=== PATIENT | female | born 1980 | race Caucasian/White ===

== ENCOUNTER 2016-10-15 22:57 | Emergency (ER) | payer MEDICAID, OTHER ==
[~2016-10-15] VITALS: Ht 157.5 cm; Wt 74.8 kg
[2016-10-15 23:57] LABS: BLOOD UREA NITROGEN 10 mg/dL (7-18)
[2016-10-16 01:32] VITALS: BP 118/71
== END 2016-10-16 01:33 | disposition home or self-care (01) ==
LOC: ED 10-16 00:25
DX: O03.4 Incomplete spontaneous abortion without complication (principal); Z3A.10 10 weeks gestation of pregnancy
CPT/HCPCS: 36415; 76801; 80048; 82040; 84702; 85025; 99285

== ENCOUNTER 2016-10-18 15:29 | Emergency (ER) | payer MEDICAID ==
[~2016-10-18] VITALS: Ht 157.5 cm; Wt 74.6 kg
[2016-10-18 15:33] VITALS: BP 108/70
== END 2016-10-18 18:07 | disposition home or self-care (01) ==
LOC: ED 17:53
DX: O03.9 Complete or unspecified spontaneous abortion without complication (principal)
CPT/HCPCS: 36415; 76801; 84702; 85025; 99285

== ENCOUNTER 2017-02-27 10:42 | Emergency (ER) | payer MEDICAID ==
[~2017-02-27] VITALS: Ht 165.1 cm; Wt 74.5 kg
[2017-02-27] MEDS ORDERED: PREN1TAB60 PO (10:59)
[2017-02-27] MEDS ORDERED: SODIUM CHLORIDE 0.9% 1,000 ML IV ONE (11:02)
[2017-02-27 11:25] LABS: HEMATOCRIT 43.5 % (34.6-47.8); HEMOGLOBIN 14.8 g/dL (11.7-16.4); WHITE BLOOD COUNT 10.9 x10^3/uL (3.4-10)
[2017-02-27 11:38] LABS: BLOOD UREA NITROGEN 7 mg/dL (7-18)
[2017-02-27 11:56] LABS: ASPARTATE AMINO TRANSFERASE 8 U/L (15-37)
[2017-02-27 13:07] VITALS: BP 103/63
== END 2017-02-27 13:09 | disposition home or self-care (01) ==
LOC: ED 11:10
DX: O26.891 Other specified pregnancy related conditions, first trimester (principal); R10.2 Pelvic and perineal pain; Z3A.09 9 weeks gestation of pregnancy
CPT/HCPCS: 36415; 76801; 80053; 81001; 84702; 85025; 87077; 87086; 87186; 96360; 96361; 99285; J7030

== ENCOUNTER 2017-09-26 05:55 | Inpatient (IN) | payer MEDICAID ==
[~2017-09-26] VITALS: Ht 165.1 cm; Wt 89.5 kg
[~2017-09-26 05:55] MED LIST: PREN1TAB60 PO
[2017-09-26] MEDS ORDERED: OXYTOCIN 30U/ 0.9% NaCL 500ML 500 ML IV ONE (05:59)
[2017-09-26] MEDS ORDERED: OXYTOCIN 30U/ 0.9% NaCL 500ML 500 ML IV PRN (05:59)
[2017-09-26] MEDS ORDERED: AMPICILLIN 2 GM in SODIUM CHLORIDE 0.9% 100 ML IVPB STA (05:59)
[2017-09-26 06:00] VITALS: BP 125/72
[2017-09-26] MEDS ORDERED: FENTANYL PF 100 MCG/2ML IV PRN (06:00)
[2017-09-26] MEDS ORDERED: ONDANSETRON 2MG/ML, 2ML IVPush PRN (06:00)
[2017-09-26 06:23] LABS: BASOPHILS # (AUTO) 0.04 x10^3/uL (0-0.1); BASOPHILS % (AUTO) 0 % (0-1); EOSINOPHILS # (AUTO) 0.11 x10^3/uL (0-0.4); EOSINOPHILS % (AUTO) 1 % (1-7); LYMPHOCYTES % (AUTO) 15 % (22-44); MD NO; MEAN CORPUSCULAR HEMOGLOBIN 30.3 pg (27.0-34.8); MEAN CORPUSCULAR HGB CONC 33.9 g/dL (32.4-35.8); MEAN CORPUSCULAR VOLUME 89.4 fL (80-100); MEAN PLATELET VOLUME 7.9 fL (7.4-10.4); MONOCYTES # (AUTO) 0.78 x10^3/uL (0.2-0.8); MONOCYTES % (AUTO) 8 % (2-9); NEUTROPHILS # (AUTO) 7.96 x10^3/uL (1.8-6.8); NEUTROPHILS % (AUTO) 76 % (42-75); PLATELET COUNT 345 x10^3/uL (130-400); RED BLOOD COUNT 4.61 x10^6/uL (3.82-5.3); RED CELL DISTRIBUTION WIDTH 13.4 % (9.6-15.2)
[2017-09-26] MEDS ORDERED: AMPICILLIN 1 GM in SODIUM CHLORIDE 0.9% 100 ML IVPB SCH (06:30)
[2017-09-26] MEDS ORDERED: OXYTOCIN 30U/ 0.9% NaCL 500ML 500 ML ONE ×2 (06:42→15:14)
[2017-09-26] MEDS: LACTATED RINGERS 1,000 ML IV SCH ×3 (06:52→21:59)
[2017-09-26] MEDS ORDERED: NEWBORN KIT ONE ×3 (07:26→14:10)
[2017-09-26] MEDS ORDERED: FENTANYL PF 100 MCG/2ML ONE (13:26)
[2017-09-26] MEDS: FENTANYL PF 100 MCG/2ML IVPush PRN ×3 (13:29→23:33)
[2017-09-26] MEDS ORDERED: METHYLERGONOVINE 0.2 MG/ML IM ONE (14:03)
[2017-09-26] MEDS ORDERED: MISOPROSTOL 200 MCG TABLET ONE (14:03)
[2017-09-26] MEDS ORDERED: HYDROcodone/APAP 5/325 TABLET PO PRN ×2 (14:30)
[2017-09-26] MEDS ORDERED: ONDANSETRON 2MG/ML, 2ML IV PRN (14:30)
[2017-09-26] MEDS ORDERED: CARBOPROST TROMETHAMINE 250 MCG/ML, 1ML IM PRN (14:30)
[2017-09-26] MEDS ORDERED: OXYTOCIN 10 UNITS/ML, 1ML IM PRN (14:30)
[2017-09-26] MEDS ORDERED: METHYLERGONOVINE 0.2 MG/ML IM PRN (14:30)
[2017-09-26] MEDS ORDERED: ACETAMINOPHEN 325 MG TABLET PO PRN (14:30)
[2017-09-26] MEDS ORDERED: MISOPROSTOL 200 MCG TABLET PR PRN (14:30)
[2017-09-26] MEDS: OXYTOCIN 30U/ 0.9% NaCL 500ML 500 ML IV SCH (15:19)
[2017-09-26 16:10] VITALS: BP 121/74
[2017-09-26] MEDS: IBUPROFEN 600 MG TABLET PO PRN ×2 (16:35→23:02)
[2017-09-26 19:50] VITALS: BP 123/74
[2017-09-26 20:20] LABS: MD YES; MEAN CORPUSCULAR HEMOGLOBIN 30.3 pg (27.0-34.8); MEAN CORPUSCULAR HGB CONC 33.5 g/dL (32.4-35.8); MEAN CORPUSCULAR VOLUME 90.3 fL (80-100); MEAN PLATELET VOLUME 8.1 fL (7.4-10.4); PLATELET COUNT 318 x10^3/uL (130-400); RED BLOOD COUNT 4.49 x10^6/uL (3.82-5.3)
[2017-09-26 20:45] LABS: <PLATELET ESTIMATE> ADEQUATE; <PLT MORPHOLOGY> NORMAL PLT MORPH; <RBC MORPHOLOGY> NORMAL; BAND#(MANUAL) 0.16 x10^3/uL; BANDS%(MANUAL) 1 % (0-7); LYMPHS% (MANUAL) 10 % (22-44); MONOS#(MANUAL) 1.12 x10^3/uL (0.3-2.7); MONOS% (MANUAL) 7 % (2-9); REACTIVE LYMPHS # (MANUAL) 0.16 x10^3/uL (0-0); REACTIVE LYMPHS % (MANUAL) 1 % (0-0); SEG#(MANUAL) 12.96 x10^3/uL (1.8-6.8); SEGS% (MANUAL) 81 % (42-75)
[2017-09-26] MEDS: DOCUSATE 100 MG CAPSULE PO PRN (23:02)
[2017-09-27] MEDS: OXYTOCIN 30U/ 0.9% NaCL 500ML 500 ML IV SCH (00:25)
[2017-09-27 00:30] VITALS: BP 97/63
[2017-09-27 03:55] VITALS: BP 101/69
[2017-09-27] MEDS: LACTATED RINGERS 1,000 ML IV SCH (05:59)
[2017-09-27] MEDS: DOCUSATE 100 MG CAPSULE PO PRN (07:43)
[2017-09-27] MEDS: IBUPROFEN 600 MG TABLET PO PRN ×2 (07:43→15:48)
[2017-09-27 07:45] VITALS: BP 107/74
[2017-09-27] MEDS ORDERED: PRENATAL VIT/IRON/FA 1 EACH TABLET PO SCH (09:00)
[2017-09-27 12:40] VITALS: BP 100/70
[2017-09-27] MEDS ORDERED: SENN-1 PO (12:51)
[2017-09-27] MEDS ORDERED: IBUP-1222 PO (12:51)
[2017-09-27] MEDS ORDERED: HYDR-3240 PO (12:52)
== END 2017-09-27 16:02 | disposition home or self-care (01) | DRG 775 ==
LOC: LDIP 05:55 → 2NW 16:00
PROVIDERS: ADMIT Obstetrics & Gynecology; ATTEND Obstetrics & Gynecology
PROC: 10E0XZZ Delivery of Products of Conception, External Approach (ICD-10-PCS; principal; 2017-09-27)
PROC: 0KQM0ZZ Repair Perineum Muscle, Open Approach (ICD-10-PCS; 2017-09-27)
DX: O32.2XX0 Maternal care for transverse and oblique lie, not applicable or unspecified (principal); O70.1 Second degree perineal laceration during delivery; Z37.0 Single live birth; Z3A.39 39 weeks gestation of pregnancy
CPT/HCPCS: 36415; 85025; 86850; 86900; J3010; J2210; J2590; J7120

== ENCOUNTER 2018-02-21 13:50 | Emergency (ER) | payer MEDICAID ==
[~2018-02-21 13:50] MED LIST changes: +HYDR-3240 PO; +IBUP-1222 PO; +SENN-92 PO
[2018-02-21 14:08] VITALS: BP 117/80
[2018-02-21 14:47] LABS: BASOPHILS # (AUTO) 0.09 x10^3/uL (0-0.1); BASOPHILS % (AUTO) 1 % (0-1); EOSINOPHILS # (AUTO) 0.15 x10^3/uL (0-0.4); EOSINOPHILS % (AUTO) 1 % (1-7); LYMPHOCYTES # (AUTO) 1.78 x10^3/uL (1-3.4); LYMPHOCYTES % (AUTO) 16 % (22-44); MD NO; MEAN CORPUSCULAR HEMOGLOBIN 29.5 pg (27.0-34.8); MEAN CORPUSCULAR HGB CONC 33.6 g/dL (32.4-35.8); MEAN CORPUSCULAR VOLUME 87.8 fL (80-100); MEAN PLATELET VOLUME 8.3 fL (7.4-10.4); MONOCYTES # (AUTO) 0.68 x10^3/uL (0.2-0.8); MONOCYTES % (AUTO) 6 % (2-9); NEUTROPHILS # (AUTO) 8.13 x10^3/uL (1.8-6.8); NEUTROPHILS % (AUTO) 75 % (42-75); PLATELET COUNT 421 x10^3/uL (130-400); RED CELL DISTRIBUTION WIDTH 14.8 % (9.6-15.2)
== END 2018-02-21 16:15 | disposition home or self-care (01) ==
LOC: ED 15:46
DX: O20.0 Threatened abortion (principal); Z3A.01 Less than 8 weeks gestation of pregnancy
CPT/HCPCS: 36415; 76801; 84702; 85025; 86901; 99285